=== PATIENT | male | born 1960 | race Caucasian/White ===

== ENCOUNTER 2022-06-30 11:32 | Emergency (ER) | payer BC, SELFPAY ==
[2022-06-30 11:42] VITALS: BP 167/90; PULSE 88; RESP 18; TEMP 36.3; O2SAT 97; BMI 29.1
--- NOTE | 2022-06-30 19:50 | ED.SKABFB ---
HPI - Skin/Abscess/Foreign Bdy General Date Seen: 06/30/22 Chief complaint: Skin/Abscess/Foreign Body Stated complaint: [place] tick bite Time Seen by Provider: 06/30/22 13:45 Source: patient and RN notes reviewed Mode of arrival: ambulatory Limitations: no limitations History of Present Illness HPI narrative: Patient is a very pleasant 62-year-old male [place] and noticed a tick when he returned home. [place]. He did not notice a tick until yesterday afternoon. He removed it but unfortunately thinks the head is still attached. He has had some mild redness around this site. He has not had any fever or chills. He is otherwise a healthy gentleman. He is certain that this was a deer tick because it was so small. Related Data Previous Rx's Medication Instructions Recorded doxycycline hyclate 100 mg capsule 200 mg PO ONCE #2 caps 06/30/22 Allergies Allergy/AdvReac Type Severity Reaction Status Date / Time No Known Drug Allergies Allergy Verified 06/30/22 11:46 Review of Systems Narrative: Patient denies fever, chills, significant discharge. No history of Lyme disease. [facility] Social History Smoking Status: Never smoker Do you use any of these nicotine containing products: None How often do you have a drink containing alcohol: never AUDIT-C Alcohol total score: 0 Non-prescribed substance use: denies use Exam Narrative: Exam Narrative: There is a small likely retained head or pincer retention of a tick to the right of the right areola. Small amount of mild erythema surrounding but no significant edema. Const: Vital Signs, click to edit/add: Vital Signs - 24 hr 06/30/22 11:42 Temperature 97.3 F L Pulse Rate [Right Pulse Oximeter] 88 Respiratory Rate 18 Blood Pressure [Ri ght Upper Arm] 167/90 H Pulse Oximetry 97 Oxygen Delivery Me thod Room Air Course Vital Signs Vital signs: Initial Vital Signs Temperature 97.3 F L 06/30/22 11:42 Temperature Source Temporal Artery Scan 06/30/22 11:42 Pulse Rate 88 06/30/22 11:42 Respiratory Rate 18 06/30/22 11:42 Blood Pressure 167/90 H 06/30/22 11:42 Blood Pressure Mean 115 06/30/22 11:42 Blood Pressure Position Sitting 06/30/22 11:42 Pulse Oximetry 97 06/30/22 11:42 Oxygen Delivery Method 06/30/22 11:42 Vital Signs Temperature 97.3 F L 06/30/22 11:42 Pulse Rate 88 06/30/22 11:42 Respiratory Rate 18 06/30/22 11:42 Blood Pressure 167/90 H 06/30/22 11:42 Pulse Oximetry 97 06/30/22 11:42 Oxygen Delivery Method 06/30/22 11:42 Temperature 97.3 F L 06/30/22 11:42 Pulse Rate 88 06/30/22 11:42 Respiratory Rate 18 06/30/22 11:42 Blood Pressure 167/90 H 06/30/22 11:42 Pulse Oximetry 97 06/30/22 11:42 Oxygen Delivery Method 06/30/22 11:42 MDM - Skin/Abscess/Foreign Bdy MDM Narrative Medical decision making narrative: 1. Retained tick head-at this time recommend continued monitoring. Up-to-date does not recommend trying to room the tick as this increases risk of soft tissue infection. I did explain that this would most likely work make its way out. 2. Lyme prophylaxis-patient had the tick attached 24-36 hours. He is eligible for doxycycline prophylaxis. 200 mg p.o. is sent to his pharmacy. However, we did talk about other tick-borne illnesses such as a [place] and anaplasmosis. Patient should monitor this area for the next 30 days. He will need to follow-up if he notes a bull's-eye lesion or he starts experiencing headache fever chills body aches. He voices understanding. Return as needed. 3. Disposition-home. Discharge Plan Discharge Clinical Impression: Tick bite of chest wall Patient Disposition: Home, Self-Care Condition: Unchanged Additional Instructions: Take 1 dose of doxycycline today. This is a prophylactic dose for the prevention of Lyme. Continue to monitor this site over the next 30 days. Should you get a bull's-eye rash, fever, body aches, please see your primary clinic for evaluation and possible blood draw to look for other tick-borne illnesses. If you notice drainage from this site increasing area of redness and swelling then we should be concerned about a soft tissue infection. Please also seek medical attention if this would occur. Prescriptions: New doxycycline hyclate 100 mg capsule 200 mg PO ONCE Qty: 2 0RF Stand Alone Forms: [employer] Info Instructions
== END 2022-06-30 14:40 | disposition home or self-care (01) ==
PROVIDERS: Emergency Provider Family Medicine
DX: S20.162A Insect bite (nonvenomous) of breast, left breast, initial encounter (principal); W57.XXXA Bitten or stung by nonvenomous insect and other nonvenomous arthropods, initial encounter; Y93.9 Activity, unspecified; Y92.838 Other recreation area as the place of occurrence of the external cause; Y99.9 Unspecified external cause status
CPT/HCPCS: 99283

== ENCOUNTER 2023-11-19 10:58 | Outpatient (CLI) | payer BC, SELFPAY | END 2023-11-19 10:59 | disposition home or self-care (01) | PROVIDERS: Visit Provider Physician Assistant Medical | DX: Z13.29 Encounter for screening for other suspected endocrine disorder (principal); Z12.5 Encounter for screening for malignant neoplasm of prostate; Z13.220 Encounter for screening for lipoid disorders; Z13.228 Encounter for screening for other metabolic disorders | CPT/HCPCS: 80053; 80061; 84443; G0103 ==

== ENCOUNTER 2024-02-22 15:00 | Outpatient (CLI) | payer BC, SELFPAY | END 2024-02-22 15:01 | disposition home or self-care (01) | PROVIDERS: PCP Physician Assistant Medical; Visit Provider Physician Assistant Medical | DX: E78.5 Hyperlipidemia, unspecified (principal); R03.0 Elevated blood-pressure reading, without diagnosis of hypertension; F10.20 Alcohol dependence, uncomplicated | CPT/HCPCS: 80061; 80076 ==

== ENCOUNTER 2025-06-14 12:15 | Outpatient (CLI) | payer MEDICARE, SELFPAY | END 2025-06-14 12:16 | disposition home or self-care (01) | LOC: NFLDREF 06-19 07:43 | PROVIDERS: PCP Physician Assistant Medical; Referring Provider Physician Assistant Medical; Visit Provider Physician Assistant Medical | DX: Z00.00 Encounter for general adult medical examination without abnormal findings (principal); I10 Essential (primary) hypertension; E78.5 Hyperlipidemia, unspecified | CPT/HCPCS: 80053; 80061; 84443; G0103 ==